=== PATIENT | male | born 1985 | race Caucasian/White ===

== ENCOUNTER 2018-06-17 10:01 | Emergency (ER) | payer MEDICAID ==
[~2018-06-17] VITALS: Ht 182.9 cm; Wt 145.5 kg
[2018-06-17 10:03] VITALS: BP 127/91
[2018-06-17] MEDS ORDERED: IBUP-2070 PO (10:05)
[2018-06-17] MEDS ORDERED: TraMADol HCL 50 MG TABLET PO ONE (11:15)
== END 2018-06-17 12:56 | disposition home or self-care (01) ==
LOC: EMS 10:03
DX: S93.401A Sprain of unspecified ligament of right ankle, initial encounter (principal); S60.222A Contusion of left hand, initial encounter; S60.221A Contusion of right hand, initial encounter; W01.0XXA Fall on same level from slipping, tripping and stumbling without subsequent striking against object, initial encounter; Y93.01 Activity, walking, marching and hiking; Y92.828 Other wilderness area as the place of occurrence of the external cause; Y99.8 Other external cause status
CPT/HCPCS: 29515